=== PATIENT | female | born 1985 | race Two or more races ===

== ENCOUNTER 2025-05-03 20:16 | Emergency (ER) | payer OTHER, MEDICAID ==
[~2025-05-03] VITALS: Ht 162.6 cm; Wt 87.5 kg
[2025-05-03 21:32] LABS: Hemoglobin 11.4 g/dL (12.2-16.2)
[2025-05-03 21:33] LABS: Hematocrit 34.4 % (36.0-46.0); Mean Corpuscular Hemoglobin 25.5 pg (28.0-32.0); Mean Corpuscular Volume 76.8 fL (80.0-100.0); Nucleated Red Blood Cells % 0.1 %
[2025-05-03 21:39] LABS: Albumin 4.1 g/dL (3.2-4.8); Alkaline Phosphatase 65 U/L (46-116); Anion Gap 10 (5-15); BUN/Creatinine Ratio 11.9 (10.0-20.0); Calcium 9.0 mg/dL (8.7-10.4); Carbon Dioxide 24 mmol/L (20-31); Chloride 105 mmol/L (98-107); Glucose 96 mg/dL (74-106); Sodium 139 mmol/L (136-145); Total Protein 7.0 g/dL (5.7-8.2)
[2025-05-03 21:40] LABS: Bilirubin, Total 0.3 mg/dL (0.2-1.0)
[2025-05-03 21:42] LABS: Alanine Aminotransferase < 9 U/L (7-40); Blood Urea Nitrogen 8 mg/dL (9-23); Potassium 3.4 mmol/L (3.5-5.1)
--- NOTE | 2025-05-03 21:54 | ED.PDOC ---
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 40-year-old female miscarriage three 14 weeks gestation presents to the emergency department for one day history of vaginal bleeding with minimal suprapubic cramping. She suspects that she has a miscarriage again. Past Medical History: Asthma, hypertension, multiple miscarriages Past Surgical History: Bariatric surgery, REVIEW OF SYSTEMS: CONSTITUTIONAL: Denies acute: fever, diaphoresis, chills, generalized weakness. HEAD: Denies acute: headache, photophobia Eyes: Denies acute: Double vision, vision loss, eye pain, eye discharge. EARS: Denies acute: tinnitus, hearing loss, ear discharge, ear pain, THROAT: Denies acute: sore throat, swelling, difficulty swallowing , pain with swallowing, change in voice. NECK: Denies acute: neck pain, neck swelling, stiff neck. HEART: Denies acute : chest pain, palpitations, LUNGS: Denies acute: SOB, wheezing, cough, hemoptysis ABDOMEN: Denies acute: abdominal pain, Nausea, Vomiting, diarrhea, melena , hematemesis, hematochezia SKIN: Denies acute: rash, redness, lesions, itchiness. EXTREMITIES: Denies acute: calf pain, numbness, tingling, weakness, denies pain in extremity. Denies acute: Low back pain. Neuro: Denies acute: focal neurological deficit, motor or sensory focal neurological deficit, tremors, seizure like activity, confusion, dizziness, change in mental status, loss of bowel or bladder function, cauda equina like symptoms. : Denies acute: dysuria, hematuria, flank pain, increase in urinary frequency. PSYCH: Denies acute: hallucination, suicidal ideation, homicidal ideation. FEMALE: Denies acute: , foul odor, unusual discharge. PHYSICAL EXAM: General: ---mild-----acute distress, awake and alert. Head: normocephalic, atraumatic. No raccoon's eyes, no hogue sign. Neck: supple, trachea is midline, no swelling. Throat: Normal phonation. Eyes:, no erythema, no purulent discharge, no proptosis, no icterus. Heart: regular rate, regular rhythm, no significant murmur appreciated. Lungs: no apparent respiratory distress, Able to speak in full sentences. No wheezing, no rhonchi, no crackles. No stridors Clear to auscultation bilaterally. Abdomen: non tender to palpation, non distended, soft, no guarding, no rebound, + bowel sounds. Neuro: Awake, Alert, oriented to name, self, situation, follows commands GCS=15. Speech is normal. Skin: no petechia, no purpura, no cyanosis, non-pale, not jaundice. Lower extremities: --no - Pitting edema no deformity, no focal swelling, no calf TTP. Makes eye contact. moves all four extremities. Face: no apparent facial droop. Ambulating in the ED independently. ED COURSE: DISCLAIMER: This medical document was created using an electronic medical record system with voice recognition software and computerized dictation system. Although this document has been carefully reviewed, there might still be some phonetic and typographical errors. Occasional wrong-word or "sound-alike" substitutions may have occurred due to the inherent limitations of voice recognition software. These areas are purely typographical due to imperfections of the software programs and do not reflect any compromise in the patient's medical care. Please read the chart carefully and recognize, using context, where these substitutions have occurred. Chief Complaint: Vaginal Bleed Time Seen by MD: 21:30 Reviewed Notes: Allergies Allergies: Coded Allergies: NO KNOWN ALLERGIES (Unverified , 05/03/25) Information Source: Patient Was a procedure done? 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) Vaginal Bleeding: - Complete, - Incomplete, - Inevitable, - Missed, - Threatened, Abruptio Placentae, Blood Loss Anemia, Cervicitis, Dysmenorrhea, Ectopic , Hormonal, Menorrhagia, Menometrorrhagia, Menstrual Bleeding, Myomatous Uterus, PID, Placenta Previa, Precipitous Hct, Trauma, UTI, Vaginitis, Other (Differential diagnosis includes but not limited to DU B, menorrhea, metromenorrhagia, neoplasm, coagulopathy,, trauma, miscarriage, placenta previa, placental abruption, ) Vaginal Discharge: Other (As far as hypertension: DDX include renal disease, thyroid disease, electrolyte abnormality, increased salt intake, medications non-compliance, undiagnosed HTN, Hypertensive crisis, hypertensive urgency., drug toxicity.) X-Ray, Labs, Meds, VS Vital Signs Date Time Temp Pulse Resp B/P (MAP) Pulse Ox O2 Delivery O2 Flow Rate FiO2 05/04/25 02:02 65 161/111 05/04/25 01:40 70 18 99 Room Air* 0 21 05/04/25 01:33 161/111 05/04/25 01:28 97.6 59 18 161/111 (128) 99 97.6 05/04/25 00:01 98.1 61 18 155/98 (117) 100 98.1 05/03/25 20:18 98.8 88 16 158/114 100 98.8 Lab Test 05/03/25 22:45 05/03/25 20:57 Range/Units Urine Color Yellow Yellow Urine Clarity Turbid H Clear Urine pH 5.5 5.0-9.0 Urine Specific [place] 1.031 1.001-1.035 Urine Protein Trace H Negative Urine Ketones 1+ H Negative Urine Blood 3+ H Negative /uL Urine Nitrite Negative Negative Urine Bilirubin Negative Negative Urine Urobilinogen 2 H Negative mg/dL Urine Leukocyte Esterase Negative Negative /uL Urine RBC 81 0 - 4 /hpf Urine Microscopic WBC 2 0-5 /HPF Urine Squamous Epithelial Cells Few <5 /hpf Urine Calcium Oxalate Crystals Few None Seen Urine Bacteria None seen None Seen /hpf Urine Mucus Few None Seen Urine Glucose Normal Normal mg/dL White Blood Count 8.5 4.4-10.8 10^3/uL Red Blood Count 4.47 4.0-5.20 10^6/uL Hemoglobin 11.4 L 12.2-16.2 g/dL Hematocrit 34.4 L 36.0-46.0 % Mean Corpuscular Volume 76.8 L 80.0-100.0 fL Mean Corpuscular Hemoglobin 25.5 L 28.0-32.0 pg Mean Corpuscular Hemoglobin Concent 33.3 32.0-36.0 g/dL Red Cell Distribution Width 16.9 H 11.8-14.3 % Platelet Count 280 140-450 10^3/uL Mean Platelet Volume 8.6 6.9-10.8 fL Neutrophils (%) (Auto) 75.4 37.0-80.0 % Lymphocytes (%) (Auto) 16.9 10.0-50.0 % Monocytes (%) (Auto) 6.2 0.0-12.0 % Eosinophils (%) (Auto) 1.1 0.0-7.0 % Basophils (%) (Auto) 0.4 0.0-2.0 % Neutrophils # (Auto) 6.4 1.6-8.6 10 ^3/uL Lymphocytes # (Auto) 1.4 0.4-5.4 10 ^3/uL Monocytes # (Auto) 0.5 0-1.3 10 ^3/uL Eosinophils # (Auto) 0.1 0-0.8 10 ^3/uL Basophils # (Auto) 0 0-0.2 10 ^3/uL Nucleated Red Blood Cells 0.1 % Sodium Level 139 136-145 mmol/L Potassium Level 3.4 L 3.5-5.1 mmol/L Chloride Level 105 98-107 mmol/L Carbon Dioxide Level 24 20-31 mmol/L Anion Gap 10 5-15 Blood Urea Nitrogen 8 L 9-23 mg/dL Creatinine 0.67 0.550-1.02 mg/dL Glomerular Filtration Rate Calc 113 >90 mL/min BUN/Creatinine Ratio 11.9 10.0-20.0 Serum Glucose 96 74-106 mg/dL Calcium Level 9.0 8.7-10.4 mg/dL Total Bilirubin 0.3 0.2-1.0 mg/dL Aspartate Amino Transferase (AST) 13 13-40 U/L Alanine Aminotransferase (ALT) < 9 7-40 U/L Alkaline Phosphatase 65 46-116 U/L Total Protein 7.0 5.7-8.2 g/dL Albumin 4.1 3.2-4.8 g/dL Beta HCG, Quantitative 9548.0 H 1.5-4.2 mIU/mL Current Medications Medications (Trade) Dose Ordered Sig/Mounika Route Start Time Stop Time Status Last Admin Labetalol HCl (Normodyne Tablet) 100 mg ONCE ONCE PO 05/04/25 01:45 05/04/25 01:46 DC 05/04/25 02:02 Time of 1ST Reevaluation: 01:35 (Patient refused hydralazine or any IV medications for her hypertension. She requested something p.o. and decided to leave against medical advice. She will take her home medications at home of labetalol 100 mg b.i.d.. I will give her one p.o. pill here while she is waiting.) Reevaluation 1ST: Unchanged Patient Education/Counseling: Diagnosis, Treatment Family Education/Counseling: No Family Present Comments MDM: patient presented with the above HPI.--vaginal bleed in rule out miscarriage----workup was initiated. patient was found with the above mentioned diagnosis. the following medications were ordered: please refer to order lists of meds and tests obtained by myself Dr. Novoa. Patient ED course and VS have been stabilized. Patient has been reassessed in the ED and remained in a stable condition. Pertinent incidental findings were discussed with the patient and/or family. Patient/family voices understanding and is agreeable with plan. Patient has been observed in the ED adequate length of time to insure improvement/stability. Escalation of care considered: Consideration of escalation to observation or admission Patient was hypertensive and refused any intervention. She left against medical advice. She has blood pressure medications at home. All the reports of any imaging studies that were ordered by myself were reviewed by myself. Departure 1 Departure Time of Disposition: 22:16 Impression: Primary Impression: Miscarriage Additional Impressions: Vaginal bleeding during Hypertension Disposition: LEFT AGAINST MEDICAL ADVICE Condition: Guarded Additional Instructions: Additional instructions: Please read all instructions provided in this packet carefully. You MUST follow-up with your primary care/family doctor in 1 to 2 days. If you are unable to see your primary care/family doctor, please return to our emergency room for re-assessment and re-evaluation in 1 to 2 days. Return to the emergency room here in our facility or to the nearest ER [facility] if your symptoms change or worsen. CONSULTATIONS: you MUST Follow-up for consultation as soon as possible with: Dr.-OB Jansen doctor in 1-2 days. Please call for appointment You MUST call the consultants office yourself to make an appointment. You may need to arrange that through your insurance and/or your primary/family doctor. If you are unable to see the road consultant in 1 to 2 days, you must return to our emergency room (or any other ER of your choice) for re-assessment and re- evaluation. Adequate fluid hydration. You are leaving against medical advice. Please monitor your blood pressure at home at least 3 times a day. Although you have been discharged from the Emergency Department, this does not mean that you have a "clean bill of health". No definitive diagnosis for your symptoms has been made today. It is possible that you are in the process of developing a serious illness. This is why you must return to the ED without fail if any new or worsening symptoms develop. Repeat beta-hCG levels in 48-72 hours. Repeat pelvic ultrasound in 4-5 days. Absolute pelvic rest. Repeat CBC in 3-4 days Below is a copy of your radiological report for follow up: [place] [id number] Ph: [phone] DIAGNOSTIC IMAGING Diagnostic Imaging Report : [id number] Signed PATIENT: CODY COPELAND ACCT: [id number] UNIT: [id number] : 1985 LOC: ER ROOM / BED: / AGE / SEX: 40 / F ADM STATUS: REG ER SERVICE 49 ORDERING PHYSICIAN: AMINATA NOVOA DO PROCEDURE(s): OB4US - OB ULTRASOUND COMP LESS 14WKS REASON: vag bleed ORDER NUMBER(s): [id number], ACCESSION NUMBER(s): [id number] Procedure: US OB ULTRASOUND COMP LESS 14WKS Study Date and Requested Time: 05/03/2025 09:20 PM Study Description: US OB ULTRASOUND COMP LESS 14WKS History: vag bleed Comparison: None Technique: Multiple high resolution jensen-scale images obtained of the uterus, fetus, and other gestational components with M-mode scanning for evaluation of heart rate. Findings: No intrauterine is visualized. Uterus measures 10.8 x 7 x 8.6 cm in size with a heterogeneous echotexture. Endometrial thickness of 0.3 cm. Cervical os is not well-visualized. Right ovary measures 3.2 x 2 x 2.1 cm. Left ovary measures 2.6 x 1.4 x 2.5 cm. Normal ovarian color Doppler flow bilaterally. No evidence of cystic or solid ovarian lesions. No evidence of free fluid in the cul-de-sac. Impression: No intrauterine is visualized. Recommend correlation with beta HCG and ultrasound as clinically indicated. Heterogeneous appearance of the uterus. ATED BY: ALKA WORLEY DO DICTATED DATE/TIME: 05/03/252199 SIGNED BY: ALKA WORLEY DO SIGNED DATE/TIME: 05/03/252199 CC: Discharged With: Self Critical Care Note Critical Care Time?: No I personally scribed for AMINATA NOVOA DO ([email or web address]) on 05/03/25 at 21:54. Electronically submitted by Dylon Ruff ([email or web address]). AMINATA NOVOA DO May 03, 2025 21:54
--- NOTE | 2025-05-03 22:03 | DVH ---
Procedure: US OB ULTRASOUND COMP LESS 14WKS Study Date and Requested Time: 05/03/2025 09:20 PM Study Description: US OB ULTRASOUND COMP LESS 14WKS History: vag bleed Comparison: None Technique: Multiple high resolution jensen-scale images obtained of the uterus, fetus, and other gestat ional components with M-mode scanning for evaluation of heart rate. Findings: No intrauterine is visualized. Uterus measures 10.8 x 7 x 8.6 cm in size with a heterogeneous echotexture. Endometrial thickness of 0.3 cm. Cervical os is not well-visualized. Right ovary measures 3.2 x 2 x 2.1 cm. Left ovary measures 2.6 x 1.4 x 2.5 cm. Normal ovarian color D oppler flow bilaterally. No evidence of cystic or solid ovarian lesions. No evidence of free fluid in the cul-de-sac. Impression: No intrauterine is visualized. Recommend correlation with beta HCG and ultrasound as clini melissa indicated. Heterogeneous appearance of the uterus.
[2025-05-03 23:37] LABS: Urine Protein, UAD TRACE (Negative)
[2025-05-04 01:28] VITALS: BP 161/111; TEMP 97.6
[2025-05-04] MEDS: hydrALAZINE HCL 20 MG/ML VL IV ONE (01:33)
[2025-05-04 01:40] VITALS: PULSE 70; RESP 18; O2SAT 99
[2025-05-04] MEDS: LABETALOL HCL 200 MG TAB PO ONE (02:02)
== END 2025-05-03 23:59 | disposition left against medical advice (07) ==
LOC: ER 20:21
DX: O20.0 Threatened abortion (principal); I10 Essential (primary) hypertension; Z3A.14 14 weeks gestation of pregnancy; Z98.890 Other specified postprocedural states
CPT/HCPCS: 36415; 76801; 80053; 81001; 84702; 85025; 86850; 86900; 86901